=== PATIENT | male | born 1975 | race Caucasian/White ===

== ENCOUNTER 2019-02-14 16:18 | Emergency (ER) | payer MEDICARE, OTHER ==
[~2019-02-14] VITALS: Ht 193 cm; Wt 0.8 kg
[2019-02-14] MEDS ORDERED: ondansetron/PF 4mg/2ml inj IV ONE (16:45)
[2019-02-14] MEDS ORDERED: CefTRIAXone inj 250 MG in normal saline 50ml IV soln 50 ML IV ONE (16:45)
[2019-02-14] MEDS ORDERED: normal saline 1000ML IV soln IVB ONE (16:45)
[2019-02-14 17:26] LABS: BASOPHILS # (AUTO) 0.1 X10'3 (0-0.2); BASOPHILS % (AUTO) 0.4 % (0-1); EOSINOPHILS # (AUTO) 0.2 X10'3 (0-0.9); HEMOGLOBIN 16.3 g/dl (14.0-17.9); LYMPHOCYTES # (AUTO) 0.6 X10'3 (1.1-4.8); MEAN CORPUSCULAR HEMOGLOBIN 31.6 PG (27.0-31.0); RED BLOOD COUNT 5.15 X10'6 (4.70-6.10)
[2019-02-14 17:27] LABS: EOSINOPHILS % (AUTO) 1.3 % (0-6); HEMATOCRIT 48.4 % (42.0-52.0); LYMPHOCYTES % (AUTO) 3.8 % (21-51); MEAN CORPUSCULAR HGB CONC 33.6 g/dL (33.0-36.5); MEAN CORPUSCULAR VOLUME 93.9 FL (78-98); MEAN PLATELET VOLUME 7.5 FL (7.4-10.4); MONOCYTES # (AUTO) 0.8 X10'3 (0-0.9); MONOCYTES % (AUTO) 4.8 % (2-12); NEUTROPHILS # (AUTO) 14.3 X10'3 (1.8-7.7); NEUTROPHILS % (AUTO) 89.7 % (42-75); PLATELET COUNT 349 X10'3 (140-440); RED CELL DISTRIBUTION WIDTH 13.3 % (11.5-14.5); WHITE BLOOD COUNT 15.9 X10'3 (4.5-11.0)
[2019-02-14 17:29] LABS: ALANINE AMINOTRANSFERASE 23 U/L (12-78); ALBUMIN 3.7 G/DL (3.4-5.0); ALBUMIN/GLOBULIN RATIO 0.9 (1.1-1.5); ALKALINE PHOSPHATASE 108 IU/L (46-116); ANION GAP 7 (8-16); ASPARTATE AMINO TRANSFERASE 17 U/L (10-37); BILIRUBIN,TOTAL 0.7 MG/DL (0.1-1.0); BLOOD UREA NITROGEN 13 MG/DL (7-18); BUN/CREATININE RATIO 14.4 (5.4-32.0); CALCIUM 8.2 MG/DL (8.5-10.1); CHLORIDE 103 MMOL/L (99-107); GLUCOSE 95 MG/DL (70-104); POTASSIUM 3.8 MMOL/L (3.5-5.1); SODIUM 139 MMOL/L (135-145); TOTAL CARBON DIOXIDE 29.1 MMOL/L (24-32); TOTAL PROTEIN 7.6 G/DL (6.4-8.2); eGFR > 90 ML/MIN
[2019-02-14] MEDS ORDERED: DOXY100C43 PO (17:47)
[2019-02-14] MEDS ORDERED: ONDA4TAB6 PO (17:47)
[2019-02-14 18:34] VITALS: BP 122/80
[2019-02-14 20:08] LABS: CLARITY,URINE CLEAR (Clear); COLOR,URINE YELLOW (Yellow); GLUCOSE, URINE NEGATIVE (Neg); KETONES,URINE NEGATIVE (Neg); LEUKOCYTE ESTERASE ,URINE NEGATIVE (Neg); NITRITES, URINE NEGATIVE (Neg); OCCULT BLOOD,URINE NEGATIVE (Neg); PROTEIN,URINE NEGATIVE (Neg)
[2019-02-14 20:09] LABS: UA COLLECTION TYPE OTHER
== END 2019-02-14 18:37 | disposition home or self-care (01) ==
LOC: ER 16:20
DX: K52.9 Noninfective gastroenteritis and colitis, unspecified (principal); F17.200 Nicotine dependence, unspecified, uncomplicated; F12.90 Cannabis use, unspecified, uncomplicated; Z79.899 Other long term (current) drug therapy; Z20.2 Contact with and (suspected) exposure to infections with a predominantly sexual mode of transmission
CPT/HCPCS: 36415; 80053; 81003; 85025; 87491; 87591; 96361; 96365; 96375; 99283; J0696; J2405; 96374

== ENCOUNTER 2023-10-19 15:37 | Emergency (ER) | payer BC, MEDICARE ==
[~2023-10-19] VITALS: Ht 185.4 cm; Wt 86.3 kg
[~2023-10-19 15:37] MED LIST: ONDA4TAB6 PO
[2023-10-19 15:51] VITALS: BP 146/102; PULSE 98; RESP 18; TEMP 97.9; O2SAT 99
== END 2023-10-19 20:20 | disposition left against medical advice (07) ==
LOC: ER 15:38
DX: L02.416 Cutaneous abscess of left lower limb (principal); Z53.21 Procedure and treatment not carried out due to patient leaving prior to being seen by health care provider